=== PATIENT | female | born 1975 | race Two or more races ===

== ENCOUNTER 2017-08-22 17:08 | Inpatient (IN) | payer OTHER ==
[~2017-08-22] VITALS: Ht 182.9 cm; Wt 106.6 kg
[2017-08-29] MEDS ORDERED: NEURONTIN300 MG PO (14:34)
[2017-08-29] MEDS ORDERED: OXYC1TAB9 PO (14:35)
[2017-08-29] MEDS ORDERED: FLAGYL500MG PO (14:36)
[2017-08-29] MEDS ORDERED: CIPRO500 MG PO (14:36)
[2017-08-29] MEDS ORDERED: ACID CONTROLLER20 MG PO (14:37)
[2017-08-29] MEDS ORDERED: INTESTINEX680 M1 PO (14:37)
== END 2017-08-29 16:08 | disposition home or self-care (01) | DRG 417 ==
LOC: ER 17:08 → MEDJ 08-23 12:46 → SEC-K 08-23 12:46 → ICU-2 08-23 12:46 → SEC-K 08-24 16:45 → MEDJ 08-24 17:22
PROVIDERS: Surgery
PROC: 4A033R1 Measurement of Arterial Saturation, Peripheral, Percutaneous Approach (ICD-10-PCS; 2017-08-23)
PROC: BF37ZZZ Magnetic Resonance Imaging (MRI) of Pancreas (ICD-10-PCS; 2017-08-23)
PROC: BF13YZZ Fluoroscopy of Gallbladder and Bile Ducts using Other Contrast (ICD-10-PCS; 2017-08-28)
PROC: 0FT44ZZ Resection of Gallbladder, Percutaneous Endoscopic Approach (ICD-10-PCS; principal; 2017-08-28 13:45)
DX: K80.00 Calculus of gallbladder with acute cholecystitis without obstruction (principal); K85.10 Biliary acute pancreatitis without necrosis or infection; E66.01 Morbid (severe) obesity due to excess calories; E86.0 Dehydration

== ENCOUNTER 2017-09-03 07:17 | Emergency (ER) | payer OTHER ==
[~2017-09-03] VITALS: Ht 167.6 cm; Wt 99.8 kg
[~2017-09-03 07:17] MED LIST: ACID CONTROLLER20 MG PO; CIPRO500 MG PO; FLAGYL500MG PO; INTESTINEX680 M1 PO; NEURONTIN300 MG PO; OXYC1TAB9 PO
== END 2017-09-03 13:22 | disposition home or self-care (01) ==
LOC: ER 07:17
DX: M54.89 Other dorsalgia (principal)

== ENCOUNTER 2017-12-07 08:27 | Emergency (ER) | payer OTHER ==
[~2017-12-07] VITALS: Ht 167.6 cm; Wt 98.9 kg
[2017-12-07] MEDS ORDERED: DICY20TA PO (12:19)
[2017-12-07] MEDS ORDERED: KETO10TA2 PO (12:19)
== END 2017-12-07 12:49 | disposition home or self-care (01) ==
LOC: ER 08:27
DX: N20.0 Calculus of kidney (principal); N39.0 Urinary tract infection, site not specified; R82.79 Other abnormal findings on microbiological examination of urine

== ENCOUNTER 2018-03-12 08:52 | Outpatient (CLI) | payer OTHER ==
[~2018-03-12 08:52] MED LIST changes: +DICY20TA PO; +KETO10TA2 PO
== END 2018-03-12 09:01 | disposition home or self-care (01) ==
LOC: EKG 08:52
DX: I10 Essential (primary) hypertension (principal)

== ENCOUNTER 2019-04-07 10:21 | Emergency (ER) | payer OTHER ==
[~2019-04-07] VITALS: Ht 167.6 cm; Wt 99.3 kg
== END 2019-04-07 15:06 | disposition home or self-care (01) ==
LOC: ER 10:21
DX: J06.9 Acute upper respiratory infection, unspecified (principal)

== ENCOUNTER 2020-06-03 11:14 | Emergency (ER) | payer OTHER ==
[~2020-06-03] VITALS: Ht 167.6 cm; Wt 99.8 kg
[2020-06-03] MEDS ORDERED: FENOFIBRATE40 MG PO (11:27)
[2020-06-03] MEDS ORDERED: VASOTEC10 MG PO (11:27)
[2020-06-03] MEDS ORDERED: PEPCID AC20 MG PO (17:16)
[2020-06-03] MEDS ORDERED: LEVSIN/SL0.125 MG PO (17:16)
== END 2020-06-03 17:32 | disposition home or self-care (01) ==
LOC: ER 11:14
DX: K29.70 Gastritis, unspecified, without bleeding (principal)

== ENCOUNTER 2021-07-16 08:19 | Emergency (ER) | payer OTHER ==
[~2021-07-16] VITALS: Ht 167.6 cm; Wt 104.3 kg
[~2021-07-16 08:19] MED LIST changes: +FENOFIBRATE40 MG PO; +LEVSIN/SL0.125 MG PO; +PEPCID AC20 MG PO; +VASOTEC10 MG PO
[2021-07-16] MEDS ORDERED: TRICOR145 MG (08:50)
[2021-07-16] MEDS ORDERED: KETO10TA2 PO (13:07)
[2021-07-16] MEDS ORDERED: CYCLOBENZAPRINE10 MG PO (13:08)
== END 2021-07-16 13:51 | disposition home or self-care (01) ==
LOC: ER 08:19
DX: R10.11 Right upper quadrant pain (principal); I10 Essential (primary) hypertension; Z87.898 Personal history of other specified conditions; Z87.2 Personal history of diseases of the skin and subcutaneous tissue; Z20.822 Contact with and (suspected) exposure to COVID-19

== ENCOUNTER 2021-11-18 08:23 | Emergency (ER) | payer OTHER ==
[~2021-11-18] VITALS: Ht 167.6 cm; Wt 1053.7 kg
[~2021-11-18 08:23] MED LIST changes: +CYCLOBENZAPRINE10 MG PO; +TRICOR145 MG
[2021-11-18] MEDS ORDERED: VASOTEC10 MG PO (08:47)
== END 2021-11-18 13:43 | disposition home or self-care (01) ==
LOC: ER 08:23
DX: J32.9 Chronic sinusitis, unspecified (principal); R42 Dizziness and giddiness

== ENCOUNTER 2024-06-07 06:00 | Emergency (ER) | payer OTHER ==
[~2024-06-07] VITALS: Ht 167.6 cm; Wt 51.3 kg
[2024-06-07 08:20] LABS: PH,URINE 6.5 (5.0-8.0); URINE APPEARANCE Clear; URINE BILIRRUBIN Negative (NEGATIVE); URINE BLOOD Small; URINE COLOR Dark Yellow; URINE GLUCOSE Negative (NEGATIVE); URINE KETONE Negative (NEGATIVE); URINE LEUKOCYTE Trace; URINE NITRATE Positive; URINE PROTEIN Negative (NEGATIVE)
[2024-06-07 08:24] LABS: URINE BACTERIA 8.5 uL (0.0-1933); URINE RBC 49.4 uL (0.0-20.8)
[2024-06-07 10:05] LABS: HEMATOCRIT 37.9 % (36.0-45.00); HEMOGLOBIN 12.9 g/dL (12.0-15.00); MEAN CELL VOLUME 84.1 fL (80.00-100.00); MEAN CORPUSCULAR HEMOGLOBIN 28.6 pg (27.00-32.0); PLATELET COUNT 164 K/uL (150-450); RED BLOOD COUNT 4.51 M/uL (4.00-6.00); RED CELL DISTRIBUTION WIDTH 12.5 % (11.5-14.5)
[2024-06-07 10:14] LABS: ALBUMIN 3.9 gm/dL (3.4-5.0); BILIRUBIN TOTAL 0.99 mg/dL (0.3-1.2); BILIRUBIN,CONJUGATED 0.21 mg/dL (0.0-0.2); BILIRUBIN,UNCONJUGATED 0.78 mg/dL (0.0-0.6); CALCIUM 9.2 mg/dL (8.5-10.1); CREATININE SERUM 0.57 mg/dL (0.55-1.02); GFR 112.27; POTASSIUM 4.06 mEq/L (3.5-5.1); TOTAL PROTEIN 7.2 gm/dL (6.4-8.2)
[2024-06-07] MEDS ORDERED: CEFTRIAXONE SODIUM 1,000 MG VIAL IV ONE (10:30)
[2024-06-07] MEDS ORDERED: ZOFRAN8 MG PO (11:42)
[2024-06-07] MEDS ORDERED: BACTRIM DS TAB1 EACH PO (11:42)
[2024-06-07] MEDS ORDERED: TAMS0.4C PO (11:42)
[2024-06-07] MEDS ORDERED: KETO10TA2 PO (11:42)
[2024-06-07] MEDS ORDERED: PEPCID AC20 MG PO (11:42)
== END 2024-06-07 11:53 | disposition home or self-care (01) ==
LOC: ER 06:01
PROVIDERS: General Practice
DX: N20.0 Calculus of kidney (principal); R31.9 Hematuria, unspecified